=== PATIENT | male | born 1960 ===

== ENCOUNTER 2018-10-05 14:19 | Outpatient (REF) | payer MEDICAID, SELFPAY ==
[2018-10-05 22:02] LABS: Anion Gap 9.7 mmol/L (3-11); BUN 19 mg/dL (7-18); CO2 26.3 mmol/L (21.0-32.0); CREATININE 0.84 mg/dL (0.70-1.30); Calcium 9.2 mg/dL (8.5-10.1); Chloride 103 mmol/L (98-107); Glucose 122 mg/dL (70-100); Potassium 3.8 mmol/L (3.5-5.1); Sodium 139 mmol/L (136-145)
== END 2018-10-05 14:39 ==
LOC: NCHCN 14:19
PROVIDERS: PCP Nurse Practitioner Family; Visit Provider Nurse Practitioner Family
DX: I10 Essential (primary) hypertension (principal)
CPT/HCPCS: 80048

== ENCOUNTER 2019-04-06 09:52 | Outpatient (REF) | payer MEDICAID, SELFPAY ==
[2019-04-06 21:51] LABS: ALT 42 U/L (16-63); AST 24 U/L (15-37); Albumin 4.3 g/dL (3.4-5.0); Alkaline Phosphatase 75 U/L (46-116); Anion Gap 9.5 mmol/L (3-11); BUN 24 mg/dL (7-18); Bilirubin, Total 0.7 mg/dL (0.2-1.0); CO2 27.5 mmol/L (21.0-32.0); CREATININE 1.01 mg/dL (0.70-1.30); Calcium 9.1 mg/dL (8.5-10.1); Chloride 101 mmol/L (98-107); Glucose 78 mg/dL (70-100); Potassium 4.1 mmol/L (3.5-5.1); Sodium 138 mmol/L (136-145); Total Protein 7.6 g/dL (6.4-8.2)
== END 2019-04-06 10:12 ==
LOC: NCHCN 09:52
PROVIDERS: PCP Nurse Practitioner Family; Visit Provider Family Medicine
DX: E78.5 Hyperlipidemia, unspecified (principal); I10 Essential (primary) hypertension
CPT/HCPCS: 80053

== ENCOUNTER 2020-01-12 09:23 | Outpatient (REF) | payer MEDICAID, SELFPAY ==
[2020-01-12 21:21] LABS: HCT 49.5 % (40.0-50.0); HGB 17.1 g/dL (13.5-17.5); Mean Corp. HGB Concentration 34.5 g/dL (32.0-36.0); Mean Corpuscular Hemoglobin 29.9 pg (27.0-33.0); Mean Corpuscular Volume 86.7 fL (80-95); Mean Platelet Volume 10.4 fL (8.0-11.0); Platelet Count 259 x1000/uL (130-400); RBC 5.71 m/cumm (4.50-6.00); RBC Distribution Width 12.2 % (11.8-14.1); White Blood Cell Count 6.22 k/cumm (4.4-10.8)
[2020-01-12 22:10] LABS: ALT 41 U/L (16-63); AST 24 U/L (15-37); Albumin 4.3 g/dL (3.4-5.0); Alkaline Phosphatase 73 U/L (46-116); Anion Gap 6.6 mmol/L (3-11); BUN 20 mg/dL (7-18); Bilirubin, Total 0.7 mg/dL (0.2-1.0); CO2 31.4 mmol/L (21.0-32.0); CREATININE 1.13 mg/dL (0.70-1.30); Calcium 9.2 mg/dL (8.5-10.1); Calculated LDL 74 mg/dL (<100); Chloride 102 mmol/L (98-107); Cholesterol 132 mg/dL (<200); Glucose 85 mg/dL (74-106); HDL Cholesterol 43 mg/dL (40-60); Potassium 3.9 mmol/L (3.5-5.1); Sodium 140 mmol/L (136-145); TSH (W/Ref FT4) 1.73 uIU/mL (0.36-3.74); Total Protein 7.4 g/dL (6.4-8.2); Triglyceride 75 mg/dL (<150); Vitamin B12 527 pg/mL (193-986)
[2020-01-13 05:00] LABS: Vitamin D 25 Total 30.9 ng/ml (30-100)
== END 2020-01-12 09:43 ==
LOC: NCHCN 09:23
PROVIDERS: PCP Nurse Practitioner Family; Visit Provider Nurse Practitioner Family
DX: F43.21 Adjustment disorder with depressed mood (principal); E78.5 Hyperlipidemia, unspecified; I10 Essential (primary) hypertension
CPT/HCPCS: 80053; 80061; 82306; 85027; 82607; 84443

== ENCOUNTER 2021-03-28 16:10 | Outpatient (REF) | payer MEDICAID, SELFPAY ==
[2021-03-28 15:18] LABS: ALT 36 U/L (16-63); AST 25 U/L (15-37); Albumin 4.2 g/dL (3.4-5.0); Alkaline Phosphatase 72 U/L (46-116); Anion Gap 11.5 mmol/L (3-11); BUN 23 mg/dL (7-18); Bilirubin, Total 0.8 mg/dL (0.2-1.0); CO2 25.5 mmol/L (21.0-32.0); CREATININE 0.9 mg/dL (0.70-1.30); Calculated LDL 68 mg/dL (<100); Chloride 103 mmol/L (98-107); Cholesterol 131 mg/dL (<200); Glucose 84 mg/dL (74-106); HDL Cholesterol 40 mg/dL (40-60); Potassium 4.1 mmol/L (3.5-5.1); Sodium 140 mmol/L (136-145); Total Protein 7.2 g/dL (6.4-8.2); Triglyceride 118 mg/dL (<150)
[2021-03-28 15:20] LABS: Hemoglobin A1C 5.4 % (<5.7)
== END 2021-03-28 16:11 | disposition home or self-care (01) ==
LOC: NCHCN 16:10
PROVIDERS: PCP Nurse Practitioner Family; Visit Provider Nurse Practitioner Family
DX: I10 Essential (primary) hypertension (principal); E78.5 Hyperlipidemia, unspecified; Z13.1 Encounter for screening for diabetes mellitus; Z00.00 Encounter for general adult medical examination without abnormal findings
CPT/HCPCS: 80053; 80061; 83036

== ENCOUNTER 2022-04-11 11:34 | Outpatient (REF) | payer MEDICAID, SELFPAY ==
[2022-04-11 15:32] LABS: ALT 38 U/L (16-63); AST 24 U/L (15-37); Albumin 4.2 g/dL (3.4-5.0); Alkaline Phosphatase 75 U/L (46-116); Anion Gap 10.4 mmol/L (3-11); BUN 22 mg/dL (7-18); Bilirubin, Total 0.6 mg/dL (0.2-1.0); CO2 26.6 mmol/L (21.0-32.0); CREATININE 0.9 mg/dL (0.70-1.30); Calculated LDL 59 mg/dL (<100); Chloride 103 mmol/L (98-107); Cholesterol 131 mg/dL (<200); Estimated GFR 97.78 (mL/min/1.73m2); Glucose 88 mg/dL (74-106); HDL Cholesterol 42 mg/dL (40-60); Potassium 4.2 mmol/L (3.5-5.1); Sodium 140 mmol/L (136-145); Total Protein 7.5 g/dL (6.4-8.2); Triglyceride 154 mg/dL (<150)
== END 2022-04-11 11:35 | disposition home or self-care (01) ==
LOC: NCHCN 11:34
PROVIDERS: PCP Nurse Practitioner Family; Visit Provider Nurse Practitioner Family
DX: I10 Essential (primary) hypertension (principal); E78.5 Hyperlipidemia, unspecified
CPT/HCPCS: 80053; 80061

== ENCOUNTER 2023-04-29 09:23 | Outpatient (REF) | payer MEDICAID, SELFPAY ==
[2023-04-29 17:28] LABS: Anion Gap 10.1 mmol/L (3-11); BUN 21 mg/dL (7-18); CO2 25.9 mmol/L (21.0-32.0); CREATININE 0.9 mg/dL (0.70-1.30); Calcium 9.6 mg/dL (8.5-10.1); Calculated LDL 64 mg/dL (<100); Chloride 101 mmol/L (98-107); Cholesterol 129 mg/dL (<200); Estimated GFR 97.17 (mL/min/1.73m2); Glucose 86 mg/dL (74-106); HDL Cholesterol 48 mg/dL (40-60); Potassium 3.7 mmol/L (3.5-5.1); Sodium 137 mmol/L (136-145); Triglyceride 88 mg/dL (<150)
[2023-04-30 19:19] LABS: PSA, Screening 1.2 ng/mL (<=4.5)
== END 2023-04-29 09:24 | disposition home or self-care (01) ==
LOC: NCHCN 09:23
PROVIDERS: PCP Nurse Practitioner Family; Visit Provider Nurse Practitioner Family
DX: I10 Essential (primary) hypertension (principal); E78.5 Hyperlipidemia, unspecified; Z12.5 Encounter for screening for malignant neoplasm of prostate
CPT/HCPCS: 80048; 80061; 84153

== ENCOUNTER 2024-09-07 15:19 | Outpatient (REF) | payer MEDICAID, SELFPAY ==
[2024-09-07 21:46] LABS: HCT 51.9 % (40.0-50.0); HGB 17.5 g/dL (13.5-17.5); MCH 30.4 pg (27.0-33.0); MCHC 33.7 % (32.0-36.0); MCV 90 fL (80-95); Platelet Count 238 10^3/uL (130-400); RBC 5.75 10^6/uL (4.36-5.78); RDW 11.9 % (11.8-14.1); WBC 6.05 10^3/uL (4.4-10.8)
[2024-09-07 22:04] LABS: ALT 41 U/L (16-63); AST 29 U/L (15-37); Albumin 4.4 g/dL (3.4-5.0); Alkaline Phosphatase 67 U/L (46-116); Anion Gap 8.2 mmol/L (3-11); BUN 18 mg/dL (7-18); Bilirubin, Total 0.56 mg/dL (0.2-1.0); CO2 29.8 mmol/L (21.0-32.0); Calcium 9.6 mg/dL (8.5-10.1); Calculated LDL 73 mg/dL (<100); Chloride 103 mmol/L (98-107); Cholesterol 153 mg/dL (<200); Glucose 96 mg/dL (74-106); HDL Cholesterol 56 mg/dL (40-60); Potassium 3.9 mmol/L (3.5-5.1); Sodium 141 mmol/L (136-145); Total Protein 7.9 g/dL (6.4-8.2); Triglyceride 124 mg/dL (<150)
[2024-09-15 17:52] LABS: PSA, Screening 1.6 ng/mL (<or=4.5)
== END 2024-09-07 15:20 | disposition home or self-care (01) ==
LOC: NCHCN 15:19
PROVIDERS: PCP Nurse Practitioner Family; Visit Provider Nurse Practitioner Family
DX: I10 Essential (primary) hypertension (principal); E78.5 Hyperlipidemia, unspecified; R53.83 Other fatigue; Z12.5 Encounter for screening for malignant neoplasm of prostate
CPT/HCPCS: 80053; 80061; 84153; 85027